=== PATIENT | male | born 1985 | race African-American/Black ===

== ENCOUNTER 2024-06-01 15:59 | Emergency (ER) | payer MEDICARE, OTHER ==
[~2024-06-01] VITALS: Ht 182.9 cm; Wt 75.0 kg
[2024-06-01 16:15] VITALS: O2SAT 98
[2024-06-01] MEDS: LIDOCAINE HCL 1% 20ML VIAL INFIL ONE (17:02)
[2024-06-01] MEDS: BACITRACIN ZINC OINT UDPKT TOP ONE (17:03)
[2024-06-01] MEDS: ACETAMINOPHEN 325MG TABLET PO ONE (17:10)
[2024-06-01] MEDS ORDERED: BO1 TP (17:24)
[2024-06-01] MEDS: ACETAMINOPHEN 160MG/5ML UDC PO ONE (17:44)
[2024-06-01 17:47] VITALS: BP 145/89; PULSE 78; RESP 18; TEMP 36.9; O2SAT 98
== END 2024-06-01 17:48 | disposition home or self-care (01) ==
LOC: ER 15:59
DX: S01.81XA Laceration without foreign body of other part of head, initial encounter (principal); W18.30XA Fall on same level, unspecified, initial encounter; Y93.89 Activity, other specified; Y92.89 Other specified places as the place of occurrence of the external cause; Y99.8 Other external cause status
CPT/HCPCS: 99282; 12014; J3490; 99283

== ENCOUNTER 2024-06-05 14:53 | Emergency (ER) | payer MEDICARE, OTHER ==
[~2024-06-05] VITALS: Ht 167.6 cm; Wt 65.0 kg
[~2024-06-05 14:53] MED LIST: BO1 TP
[2024-06-05 15:12] VITALS: TEMP 36.9; O2SAT 99
[2024-06-05 20:03] VITALS: BP 142/70; PULSE 87; RESP 13; O2SAT 100
== END 2024-06-05 20:05 | disposition home or self-care (01) ==
LOC: ER 15:02
DX: S01.112D Laceration without foreign body of left eyelid and periocular area, subsequent encounter (principal); X58.XXXD Exposure to other specified factors, subsequent encounter
CPT/HCPCS: 99281

== ENCOUNTER 2024-06-15 16:53 | Emergency (ER) | payer MEDICARE, OTHER ==
[~2024-06-15] VITALS: Ht 162.6 cm; Wt 70.0 kg
[2024-06-15 17:25] VITALS: BP 146/82; PULSE 87; RESP 18; TEMP 36.8; O2SAT 100
== END 2024-06-15 18:01 | disposition home or self-care (01) ==
LOC: ER 16:53
DX: S01.81XD Laceration without foreign body of other part of head, subsequent encounter (principal); Z48.02 Encounter for removal of sutures; Z98.890 Other specified postprocedural states; X58.XXXD Exposure to other specified factors, subsequent encounter
CPT/HCPCS: 99281